=== PATIENT | female | born 1945 | race Caucasian/White ===

== ENCOUNTER 2017-12-19 07:04 | Emergency (ER) | payer MEDICARE, MEDICAID ==
[~2017-12-19] VITALS: Ht 152.4 cm; Wt 68.0 kg
[~2017-12-19 07:04] MED LIST: CARAFATE1 GM PO; GARLIC OIL1 EAC1; HYDROCODON-ACE1 EAC7; HYDROCODONE-AP1 EAC6 PO; LEVAQUIN 500 M500 M2 PO; LEVAQUIN 500 M500 M4 PO; LEVAQUIN 500 M500 MG PO; LIPITOR; LIPITOR 20 MG T20 M1 PO; MIRALAX17 GM PO; NORCO 5-325 TA1 EACH PO; PROTONIX40 M1 PO; TRAMADOL 50 MG50 MG PO; ULTRACET; VENTOLIN HFA 1818 GM INH
[2017-12-19] MEDS ORDERED: ELIQUIS5 MG PO (07:14)
[2017-12-19 07:29] LABS: ABSOLUTE BASOPHILS 0.1 thou/uL (0.0-0.2); ABSOLUTE EOSINOPHILS 0.3 thou/uL (0.0-0.7); ABSOLUTE LYMPHOCYTES 1.2 thou/uL (0.8-5.3); ABSOLUTE MONOCYTES 0.7 thou/uL (0.0-1.2); ABSOLUTE NEUTROPHILS 5.7 thou/uL (1.6-8.1); HEMOGLOBIN 13.3 gm/dL (12.0-15.0); NUCLEATED RBCS 0 /100WBC; PLATELET COUNT* 273 thou/uL (150-400); RDW-CV 15.4 % (10.5-14.5); WBC 8.1 thou/uL (4.0-11.0)
[2017-12-19 07:31] LABS: BASOPHILS 1.1 %; EOSINOPHILS 3.9 %; HEMATOCRIT 39.8 % (37.0-47.0); LYMPHOCYTES 15.3 %; MCH 30.2 pg (26.0-34.0); MCHC 33.4 g/dL (28.0-37.0); MCV 90.3 fL (80.0-100.0); MONOCYTES 8.9 %; MPV 8.6 fl. (7.2-11.1); POLYS 70.8 %
[2017-12-19 07:36] LABS: ANION GAP 7 mmol/L (7-16); BUN 11 mg/dL (7-18); CALCIUM 8.7 mg/dL (8.5-10.1); CHLORIDE 104 mmol/L (98-107); CO2 28 mmol/L (21-32); CREATININE 0.7 mg/dL (0.6-1.3); GLUCOSE 95 mg/dL (70-99); POTASSIUM 3.8 mmol/L (3.5-5.1); SODIUM 139 mmol/L (136-145)
[2017-12-19 07:43] LABS: ALBUMIN 3.4 g/dL (3.4-5.0); ALKALINE PHOSPHATASE 102 U/L (46-116); SGOT 13 U/L (15-37); SGPT 20 U/L (30-65); TOTAL BILIRUBIN 0.4 mg/dL (<0.1-1.0); TOTAL PROTEIN 7.4 g/dL (6.4-8.2); TROPONIN-I LEVEL <0.06 ng/mL (<0.06)
[2017-12-19 08:09] LABS: NT-PRO BRAIN NAT PEPTIDE 178 pg/mL (<300)
[2017-12-19] MEDS ORDERED: ZPAK PO (10:46)
[2017-12-19] MEDS ORDERED: PREDNISONE50 MG PO (10:46)
[2017-12-19 10:59] VITALS: BP 134/67
--- NOTE | 2017-12-19 11:15 | EKG ---
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: Alessandro SCHMIDT : 1945 Requested By: Zander Mendoza Order Number: [id number] MD: Wallace Man Measurements Intervals [place] Rate: 92 P: 61 [place]: 138 QRS: -36 QRSD: 84 T: 62 QT: 369 QTc: 457 Interpretive Statements Sinus rhythm RSR' in V1 or V2, probably normal variant Possible inferior infarct, old Compared to ECG 12/02/2016 18:47:18 RSR' in V1 or V2 now present Myocardial infarct finding now present Electronically Signed On 12-19-2017 11:15:39 CDT by Wallace Man [email or web address] <ELECTRONICALLY SIGNED> By: Wallace Man MD, [facility] 12/19/17 [phone] [id number] Wallace Man MD, [facility] /EPI
== END 2017-12-19 10:59 | disposition home or self-care (01) ==
LOC: M.ERS 07:04
PROVIDERS: Emergency Medicine Emergency Medical Services
DX: J44.1 Chronic obstructive pulmonary disease with (acute) exacerbation (principal); E78.00 Pure hypercholesterolemia, unspecified; G89.29 Other chronic pain; F17.210 Nicotine dependence, cigarettes, uncomplicated; Z88.0 Allergy status to penicillin; Z90.711 Acquired absence of uterus with remaining cervical stump; Z90.49 Acquired absence of other specified parts of digestive tract

== ENCOUNTER 2018-02-06 10:02 | Inpatient (IN) | payer MEDICARE, MEDICAID ==
[~2018-02-06] VITALS: Ht 152.4 cm; Wt 67.1 kg
[~2018-02-06 10:02] MED LIST changes: +ELIQUIS5 MG PO; +PREDNISONE50 MG PO; +ZPAK PO
[2018-02-06 10:07] VITALS: BP 149/77
[2018-02-06] MEDS ORDERED: ACCUNEB SO1.25 MG/1 INH (10:09)
[2018-02-06 10:39] LABS: HEMATOCRIT 39.9 % (37.0-47.0); HEMOGLOBIN 13.2 gm/dL (12.0-15.0); MCH 29.9 pg (26.0-34.0); MCHC 33.1 g/dL (28.0-37.0); MCV 90.1 fL (80.0-100.0); MPV 8.9 fl. (7.2-11.1); NUCLEATED RBCS 0 /100WBC; PLATELET COUNT* 249 thou/uL (150-400); RBC 4.43 mil/uL (4.20-5.00); RDW-CV 14.8 % (10.5-14.5); WBC 15.2 thou/uL (4.0-11.0)
[2018-02-06 10:47] LABS: ANION GAP 10 mmol/L (7-16); BUN 14 mg/dL (7-18); CALCIUM 8.7 mg/dL (8.5-10.1); CHLORIDE 103 mmol/L (98-107); CO2 24 mmol/L (21-32); CREATININE 0.8 mg/dL (0.6-1.3); GLUCOSE 112 mg/dL (70-99); POTASSIUM 3.6 mmol/L (3.5-5.1); SODIUM 137 mmol/L (136-145)
[2018-02-06 10:49] LABS: APTT 33.8 Seconds (25.0-31.3); INR 1.1; PROTIME 10.9 Seconds (9.20-11.50)
[2018-02-06 10:58] LABS: ALBUMIN 3.3 g/dL (3.4-5.0); ALKALINE PHOSPHATASE 85 U/L (46-116); NT-PRO BRAIN NAT PEPTIDE 217 pg/mL (<300); SGOT 11 U/L (15-37); SGPT 13 U/L (30-65); TOTAL BILIRUBIN 0.8 mg/dL (<0.1-1.0); TOTAL PROTEIN 7.4 g/dL (6.4-8.2); TROPONIN-I LEVEL <0.06 ng/mL (<0.06)
[2018-02-06 11:05] LABS: ABSOLUTE LYMPHOCYTES 1.8 thou/uL (0.8-5.3); ABSOLUTE MONOCYTES 0.8 thou/uL (0.0-1.2); ABSOLUTE NEUTROPHILS 12.6 thou/uL (1.6-8.1); METAMYELOCYTES 1 %; PLATELET ESTIMATE ADEQUATE
[2018-02-06 12:48] VITALS: BP 113/70
[2018-02-06 13:12] LABS: INFLUENZA A ANTIGEN None Detected (None Detect); INFLUENZA B ANTIGEN None Detected (None Detect)
--- NOTE | 2018-02-06 14:37 | EKG ---
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: CEFERINO : 1945 Requested By: Zander Mendoza Order Number: [id number] MD: Florian Tan Measurements Intervals [place] Rate: 98 P: 78 [place]: 134 QRS: -55 QRSD: 83 T: 59 QT: 351 QTc: 449 Interpretive Statements Sinus rhythm Abnormal R-wave progression, late transition Inferior infarct, old Compared to ECG 12/19/2017 07:09:47 No significant changes Electronically Signed On 02-06-2018 14:36:53 CDT by Florian Tan [email or web address] <ELECTRONICALLY SIGNED> By: Florian Tan MD, [facility] 02/06/18 1436 1013 [id number] Florian Tan MD, [facility] /EPI
[2018-02-06 15:20] VITALS: BP 103/59
--- NOTE | 2018-02-06 17:17 | NUR ---
VSS, ASSUMED CARE OF FROM ER, ASSESSMENT PERFORMED AND CHARTED, FALL PRECAUTIONS IN PLACE AND CALL LIGHT IN REACH, PT IS A&O4 ON 2L NC AND UP AD WAQAR, STATES SHE HAS BACK PAIN RATES PAIN 8 OUT OF 10, PT IS TRACING SR ON THE MONITOR, PT GOAL IS TO IMPROVE BREATHING, WILL FOLLOW WITH PLAN OF CARE.
[2018-02-06 19:30] VITALS: BP 98/57
[2018-02-07] VITALS: BP 121/76
[2018-02-07 04:00] VITALS: BP 115/64
--- NOTE | 2018-02-07 04:31 | NUR ---
CARE ASSUMMED AT 2330. PT HAS RESTED QUIETLY THIS SHIFT. RESP REG AND UNALBORED SKIN W/D [place] DISTRESS NOTED.02 2L BNC INTACT. TELEMETRY PACK INTACT WITH ALATMS SET. VSS AND NO ACUTE CHANGES DURIGN SHIFT WILL CONTINUE TO MONITOR
[2018-02-07 05:48] LABS: HEMATOCRIT 36.6 % (37.0-47.0); HEMOGLOBIN 12.1 gm/dL (12.0-15.0); MCH 30.3 pg (26.0-34.0); MCV 91.9 fL (80.0-100.0); RBC 3.98 mil/uL (4.20-5.00); WBC 14.7 thou/uL (4.0-11.0)
[2018-02-07 06:10] LABS: CALCIUM 8.7 mg/dL (8.5-10.1); CREATININE 0.7 mg/dL (0.6-1.3); MAGNESIUM 2.2 mg/dL (1.8-2.4); POTASSIUM 4.5 mmol/L (3.5-5.1)
[2018-02-07 07:58] VITALS: BP 119/62
[2018-02-07 08:00] VITALS: BP 119/62
[2018-02-07 12:55] VITALS: BP 123/60
--- NOTE | 2018-02-07 15:43 | NUR ---
Pt is A&O. Resides at home with her children and grandchildren. Independent with ADLs, continues to cook, clean and drive. Pt has home o2 that she uses PRN through [employer]. No other DME. No hx of HH or SNF. Supportive family. Goal is to return home, no needs anticipated. Following.
--- NOTE | 2018-02-07 18:20 | NUR ---
PATINET RESTING IN BED. UP AD WAQAR. 2L PER NASAL CANULA. MED SURG STATUS. AOX4. PATINET PRORESSING TOWARDS GOALS AND HOURLY ROUNDING PERFORMED FOR PATIENT SAFETY. VITAL SIGNS STABLE. R HAND AND L AC IV PRESENT.
[2018-02-07 19:05] VITALS: BP 108/47
[2018-02-08] VITALS: BP 124/70
--- NOTE | 2018-02-08 04:32 | NUR ---
PT AAOX4 RESP REG AND UNLABORED SKIN W/D NO ACUTE DISTRESS NOTED. PT STATED THAT SHE WAS BREATHING BETTER. O2 2L BNC INTACT. VSS AND NO ACUTE CHANGES DURIGN SHIFT, WILL CONTINUE TO MONITOR
[2018-02-08 07:44] VITALS: BP 132/75
--- NOTE | 2018-02-08 10:00 | NUR ---
ASSUMED CARE OF PATIENT AFTER REC'G REPORT FROM JAQUAN RN. PT IS A & O X4. MED SURG STATUS. VS WNL. O2 SATS: 91% ON 2L/MIN NC, HAS BEEN LAYING DOWN. SATS >92% IN SEMIFOWLER'S POSITION. ASSESSMENT COMPLETE, DOCUMENTED. MEDS PER JUL. PT IS ABLE TO COMMUNICATE NEEDS TO STAFF. STATES HAVING NO PAIN AT TIME OF ASSESSMENT. CALL LIGHT WITHIN REACH. BED LOW IN LOCKED POSITION.
--- NOTE | 2018-02-08 14:20 | NUR ---
CALLED REPORT TO MARJORIE Gupta RN. PT TRANSFERED VIA AND NURSING STAFF TO MED SURG UNIT. PT HAS ALL BELONGINGS IN HER POSSESSION.
--- NOTE | 2018-02-08 15:30 | NUR ---
PATIENT ARRIVED TO UNIT AT 1445. ALERT AND ORIENTED X 4. VITAL SIGNS STABLE ON ROOM AIR. UP AD WAQAR. ORIENTED TO ROOM. CALL LIGHT WITHIN REACH. NURSING WILL CONTINUE TO MONITOR.
[2018-02-08 17:16] VITALS: BP 122/70
--- NOTE | 2018-02-08 17:16 | NUR ---
PATIENT ALERT AND ORIENTED X 4. VITAL SIGNS STABLE ON ROOM AIR. AFEBRILE. UP AD WAQAR IN ROOM. IV PATENT AND SALINE LOCKED. DENIES PAIN AND NAUSEA. HOURLY ROUNDS MAINTAINED SINCE ARRIVING TO UNIT. CALL LIGHT WITHIN REACH. NURSING WILL CONTINUE TO MONITOR.
[2018-02-08 23:30] VITALS: BP 144/79
[2018-02-09 04:04] LABS: HEMATOCRIT 36.2 % (37.0-47.0); HEMOGLOBIN 11.8 gm/dL (12.0-15.0); MCH 30.2 pg (26.0-34.0); MCHC 32.7 g/dL (28.0-37.0); MCV 92.4 fL (80.0-100.0); MPV 8.6 fl. (7.2-11.1); RBC 3.92 mil/uL (4.20-5.00); RDW-CV 14.8 % (10.5-14.5); WBC 15.4 thou/uL (4.0-11.0)
[2018-02-09 04:33] LABS: CREATININE 0.8 mg/dL (0.6-1.3); POTASSIUM 4.2 mmol/L (3.5-5.1)
--- NOTE | 2018-02-09 07:23 | NUR ---
PATIENT SLEPT MOST OF THE NIGHT. IV REMAINS SALINE LOCKED. PATIENT WAS GIVEN PAIN MEDICINE ONCE THIS SHIFT. PATIENT REMAINS ON OXYGEN AT 2L PER NASAL CANNULA. WILL CONTINUE TO MONITOR.
[2018-02-09] MEDS ORDERED: MUCINEX600 MG PO (07:36)
[2018-02-09] MEDS ORDERED: PREDNISONE 10 M10 MG PO (07:36)
[2018-02-09] MEDS ORDERED: LEVAQUIN 750 M750 MG PO (07:36)
[2018-02-09 08:30] VITALS: BP 146/82
[2018-02-09 12:00] VITALS: BP 146/82
[2018-02-09 12:04] VITALS: BP 146/82
[2018-02-09 14:40] VITALS: BP 146/82
--- NOTE | 2018-02-09 14:56 | NUR ---
PATIENT HAS BEEN ALERT AND ORIENTED TODAY, VERY PLEASANT. UP AD WAQAR IN ROOM. NO COMPLAINTS OF PAIN TODAY. VITAL SIGNS HAVE BEEN STABLE ON ROOM AIR. PATIENT IS BEING DISCHARGED TO HOME, DISCHARGE INSTRUCTIONS AND PRESCRIPTIONS GIVEN TO PATIENT, ALL QUESTIONS ANSWERED FOR PATIENT. LEFT VIA WHEEL CHAIR TO HOME.
== END 2018-02-09 14:40 | disposition home or self-care (01) | DRG 871 ==
LOC: M.ERS 10:02 → M.2W 11:21 → M.TBA-ER 11:21 → M.2W 13:43 → M.3W 02-08 14:40
PROVIDERS: Emergency Medicine Emergency Medical Services; ADMIT Internal Medicine
DX: A41.9 Sepsis, unspecified organism (principal); J96.01 Acute respiratory failure with hypoxia; J15.9 Unspecified bacterial pneumonia; J44.1 Chronic obstructive pulmonary disease with (acute) exacerbation; J44.0 Chronic obstructive pulmonary disease with (acute) lower respiratory infection; E78.00 Pure hypercholesterolemia, unspecified; G89.29 Other chronic pain; Z88.0 Allergy status to penicillin; Z87.891 Personal history of nicotine dependence; Z90.711 Acquired absence of uterus with remaining cervical stump; Z90.49 Acquired absence of other specified parts of digestive tract; Z85.118 Personal history of other malignant neoplasm of bronchus and lung; Z79.899 Other long term (current) drug therapy; K21.0 Gastro-esophageal reflux disease with esophagitis; Z90.2 Acquired absence of lung [part of]

== ENCOUNTER → 2018-02-20 | Outpatient (CLI) | payer MEDICARE, MEDICAID ==
[~2018-02-20] MED LIST changes: +ACCUNEB SO1.25 MG/1 INH; +LEVAQUIN 750 M750 MG PO; +MUCINEX600 MG PO; +PREDNISONE 10 M10 MG PO
== END ==
LOC: M.RAD 13:03
DX: J18.9 Pneumonia, unspecified organism (principal); R91.8 Other nonspecific abnormal finding of lung field; E78.00 Pure hypercholesterolemia, unspecified; G89.29 Other chronic pain; F17.210 Nicotine dependence, cigarettes, uncomplicated; Z90.2 Acquired absence of lung [part of]; Z88.0 Allergy status to penicillin

== ENCOUNTER 2018-05-15 17:00 | Emergency (ER) | payer MEDICARE, MEDICAID ==
[~2018-05-15] VITALS: Ht 152.4 cm; Wt 68.0 kg
[2018-05-15] MEDS ORDERED: NORCO 5-325 TA1 EACH PO (17:10)
[2018-05-15 18:06] LABS: ABSOLUTE EOSINOPHILS 0.2 thou/uL (0.0-0.7); ABSOLUTE LYMPHOCYTES 1.3 thou/uL (0.8-5.3); ABSOLUTE MONOCYTES 0.5 thou/uL (0.0-1.2); ABSOLUTE NEUTROPHILS 6.1 thou/uL (1.6-8.1); BASOPHILS 0.2 %; HEMATOCRIT 40.7 % (37.0-47.0); HEMOGLOBIN 13.5 gm/dL (12.0-15.0); LYMPHOCYTES 16.4 %; MCH 30.5 pg (26.0-34.0); MCHC 33.2 g/dL (28.0-37.0); MCV 91.8 fL (80.0-100.0); MPV 8.2 fl. (7.2-11.1); NUCLEATED RBCS 0 /100WBC; PLATELET COUNT* 287 thou/uL (150-400); POLYS 74.4 %; RBC 4.43 mil/uL (4.20-5.00); RDW-CV 14.8 % (10.5-14.5); WBC 8.2 thou/uL (4.0-11.0)
[2018-05-15 18:14] LABS: CREATININE 0.8 mg/dL (0.6-1.3); POTASSIUM 3.8 mmol/L (3.5-5.1)
[2018-05-15 18:19] LABS: ALBUMIN 3.6 g/dL (3.4-5.0); TOTAL BILIRUBIN 0.2 mg/dL (<0.1-1.0); TOTAL PROTEIN 7.2 g/dL (6.4-8.2)
[2018-05-15 19:14] VITALS: BP 149/83
== END 2018-05-15 19:15 | disposition home or self-care (01) ==
LOC: M.ERS 17:00
PROVIDERS: Nurse Practitioner Family
DX: M25.561 Pain in right knee (principal); F17.210 Nicotine dependence, cigarettes, uncomplicated; E78.00 Pure hypercholesterolemia, unspecified; G89.29 Other chronic pain; Z90.711 Acquired absence of uterus with remaining cervical stump; Z90.49 Acquired absence of other specified parts of digestive tract; Z88.0 Allergy status to penicillin

== ENCOUNTER → 2018-05-30 | Outpatient (CLI) | payer MEDICARE, MEDICAID | LOC: M.MRI 14:04 | DX: S83.222A Peripheral tear of medial meniscus, current injury, left knee, initial encounter (principal); S83.242A Other tear of medial meniscus, current injury, left knee, initial encounter; M25.462 Effusion, left knee; X58.XXXA Exposure to other specified factors, initial encounter; Y93.89 Activity, other specified; Y92.89 Other specified places as the place of occurrence of the external cause; Y99.8 Other external cause status ==

== ENCOUNTER → 2018-07-03 | Day surgery (SDC) | payer MEDICARE, MEDICAID ==
[~2018-07-03] MED LIST changes: +PRILOSEC 20 MG20 MG PO
--- NOTE | ~2018-07-03 | OP ---
[address] [address] OPERATIVE REPORT Name: VIMAEVE FAWAD Room: [facility].#: [id number] Admission: 07/03/18 Attend Phys: Florian Bird DO Discharge: Date of : 47 Report #: [id number] THIS REPORT FOR: //name// CC: Florian Diaz DATE OF SERVICE: 07/03/2018 PREOPERATIVE DIAGNOSIS: Left knee medial meniscus tear. POSTOPERATIVE DIAGNOSES: 1. Complex tear posterior horn medial meniscus. 2. 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 PROCEDURE: 1. Left knee arthroscopy. 2. Partial medial meniscectomy. SURGEON: Florian Bird MD COUNTY DIRECTOR: Topher Mobley DO. ESTIMATED BLOOD LOSS: 5 mL. DRAINS: None. SPECIMEN REMOVED: None. ANESTHESIA: General. ANTIBIOTICS: Ancef 2 grams IV preoperatively. CONDITION OF PATIENT: Stable to PACU. INDICATIONS: The patient is a pleasant 72-year-old female, seen in my clinic regarding left knee pain she has had for quite some time. She unfortunately failed conservative treatment. MRI was obtained demonstrating a tear of the medial meniscus. Based on her fairly well preserved joint spaces on x-ray, I have discussed potential benefit of left knee arthroscopy. I discussed procedure, risks, benefits, complications, and indications in detail with her. Risks discussed include but not limited to infection, neurovascular injury, continued worsening pain, repeat tear, no improvement in symptoms, need for further surgery, DVT, PE and anesthesia complications. She did express understanding and wished to proceed with surgery. DESCRIPTION OF PROCEDURE: After consent was obtained, [place] [address] OPERATIVE REPORT Name: MAEVE NESBITT FAWAD Room: [facility]..#: [id number] Admission: 07/03/18 Attend Phys: Florian Bird DO Discharge: Date of : 47 Report #: [id number] the operative suite and placed in the supine position on the operating room table. She was given benefit of general anesthesia. A well-padded tourniquet was placed over left upper thigh. Left leg was placed in well-padded leg milner and sterilely prepped and draped in the usual fashion. Preop timeout was obtained to confirm the correct patient, procedure and operative site. Surgery began with standard anterolateral portal incision and arthroscope was introduced. Diagnostic arthroscopy was performed noting the above findings. She did have global grade 1-2 chondromalacia of the joint; however, fairly well preserved cartilage for her age. An anterior medial portal was established using spinal needle technique. Upon evaluation of the medial meniscus she did have a complex type tear with multiple flaps and incarcerated undersurface flap as well. The ACL and lateral compartment were without significant pathology. At this time, a combination of arthroscopic baskets and shaver was used to perform partial medial meniscectomy, taking the tear back to stable edges. Once this was performed, the meniscus was again probed and there were no unstable lesions noted. This did clean up fairly nicely. The final pictures were taken. Shaver was used to debride the joint slightly and the joint was then thoroughly irrigated with sterile saline. All fluid was then drained. Instruments were removed. Incisions were closed with 4-0 nylon in simple interrupted fashion. Mixture of 1% lidocaine and 40 mg of Kenalog was injected into the joint. Sterile bandage was applied. She did tolerate the procedure well without complications. She was taken to recovery room in stable condition. All needle and sponge counts were correct x 2 at the end of the procedure. By: [id number] Bird DO /kevin
[2018-07-03 09:17] LABS: HEMOGLOBIN 14.7 gm/dL (12.0-15.0); MCH 31.6 pg (26.0-34.0); MCHC 34.2 g/dL (28.0-37.0); MCV 92.5 fL (80.0-100.0); MPV 8.4 fl. (7.2-11.1); RBC 4.65 mil/uL (4.20-5.00); RDW-CV 14.2 % (10.5-14.5); WBC 8.3 thou/uL (4.0-11.0)
[2018-07-03 09:30] LABS: CALCIUM 9.4 mg/dL (8.5-10.1); CREATININE 0.8 mg/dL (0.6-1.3); POTASSIUM 4.3 mmol/L (3.5-5.1)
== END | disposition home or self-care (01) ==
LOC: M.SUR 08:55
PROVIDERS: Orthopaedic Surgery
DX: S83.232A Complex tear of medial meniscus, current injury, left knee, initial encounter (principal); M94.262 Chondromalacia, left knee; J44.1 Chronic obstructive pulmonary disease with (acute) exacerbation; Z88.0 Allergy status to penicillin; Z79.899 Other long term (current) drug therapy; X58.XXXA Exposure to other specified factors, initial encounter; Y93.89 Activity, other specified; Y92.89 Other specified places as the place of occurrence of the external cause; Y99.8 Other external cause status

== ENCOUNTER 2018-09-13 09:51 | Inpatient (IN) | payer MEDICARE, MEDICAID ==
[~2018-09-13] VITALS: Ht 152.4 cm; Wt 66.7 kg
[~2018-09-13 09:51] MED LIST changes: +NORCO 10-325 T1 EACH PO
[2018-09-13 10:09] VITALS: BP 141/91
[2018-09-13 10:56] LABS: ABSOLUTE BASOPHILS 0.1 thou/uL (0.0-0.2); ABSOLUTE EOSINOPHILS 0.2 thou/uL (0.0-0.7); ABSOLUTE LYMPHOCYTES 1.4 thou/uL (0.8-5.3); ABSOLUTE MONOCYTES 0.5 thou/uL (0.0-1.2); ABSOLUTE NEUTROPHILS 5.8 thou/uL (1.6-8.1); BASOPHILS 0.8 %; EOSINOPHILS 2.6 %; HEMATOCRIT 41.5 % (37.0-47.0); LYMPHOCYTES 17.2 %; MCH 30.7 pg (26.0-34.0); MCHC 33.8 g/dL (28.0-37.0); MCV 90.7 fL (80.0-100.0); MONOCYTES 6.4 %; MPV 8.5 fl. (7.2-11.1); NUCLEATED RBCS 0 /100WBC; PLATELET COUNT* 324 thou/uL (150-400); RBC 4.58 mil/uL (4.20-5.00); RDW-CV 14.8 % (10.5-14.5)
[2018-09-13 11:03] LABS: APTT 32.8 Seconds (25.0-31.3); INR 1.1; PROTIME 10.8 Seconds (9.20-11.50)
[2018-09-13 11:22] LABS: ALBUMIN 3.6 g/dL (3.4-5.0); ALKALINE PHOSPHATASE 92 U/L (46-116); ANION GAP 11 mmol/L (7-16); BUN 10 mg/dL (7-18); CALCIUM 9.2 mg/dL (8.5-10.1); CHLORIDE 107 mmol/L (98-107); CO2 25 mmol/L (21-32); CREATININE 0.7 mg/dL (0.6-1.3); GLUCOSE 104 mg/dL (70-99); LIPASE 143 U/L (73-393); MAGNESIUM 1.9 mg/dL (1.8-2.4); NT-PRO BRAIN NAT PEPTIDE 198 pg/mL (<300); POTASSIUM 3.9 mmol/L (3.5-5.1); SGOT 14 U/L (15-37); SGPT 19 U/L (30-65); SODIUM 143 mmol/L (136-145); TOTAL BILIRUBIN 0.4 mg/dL (<0.1-1.0); TOTAL PROTEIN 7.4 g/dL (6.4-8.2); TROPONIN-I LEVEL <0.06 ng/mL (<0.06)
[2018-09-13 12:45] VITALS: BP 123/73
[2018-09-13 12:55] VITALS: BP 136/80
--- NOTE | 2018-09-13 16:09 | EKG ---
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: : 1945 Requested By: Aniceto Zapata Order Number: [id number] MD: Florian Tan Measurements Intervals [place] Rate: 96 P: 81 [place]: 138 QRS: -54 QRSD: 85 T: 65 QT: 365 QTc: 462 Interpretive Statements Sinus rhythm Abnormal R-wave progression, late transition Probable inferior infarct, old Compared to ECG 02/06/2018 10:13:55 No significant changes Electronically Signed On 09-13-2018 16:09:28 CDT by Florian Tan [email or web address] <ELECTRONICALLY SIGNED> By: Florian Tan MD, FACC 09/13/18 1609 1049 1049 Florian Tan MD, [facility] /EPI
[2018-09-13 16:34] LABS: INFLUENZA A ANTIGEN None Detected (None Detect); INFLUENZA B ANTIGEN None Detected (None Detect)
--- NOTE | 2018-09-13 17:21 | NUR ---
PATIENT ARRIVED FROM ER THIS AFTERNOON. PATIENT SETTLED TO ROOM AND HISTORY, ASSESSMENT AND VITALS COMPLETED AND DOCUMENTED. PATIENT DENIES ANY PAIN AT THIS TIME. PATIENT IS SHORT OF AIR WITH EXERTION. LUNG SOUNDS ARE WHEEZY. PATIENT DENIES ANY NEEDS AT THIS TIME. CALL LIGHT WITHIN REACH. WILL CONTINUE TO MONITOR.
[2018-09-13 18:00] VITALS: BP 118/73
[2018-09-13 21:00] VITALS: BP 104/56
[2018-09-14] VITALS: BP 106/61
[2018-09-14 04:00] VITALS: BP 114/68
--- NOTE | 2018-09-14 06:41 | NUR ---
PT ALERT AND ORIENTED. HOME MED MELATONIN ORDERED AT HS PER PT REQUEST. PT WAS UP MOST OF SHIFT. DR PITTS ORDERED TELE STATUS FOR PT. SINUS RHYTHM ON THE MONITOR. MEDS GIVEN PER EMAR. PAIN MEDS GIVEN THIS SHIFT. RELIEF NOTED. CALL LIGHT WITHIN REACH. HOURLY ROUNDINGS MADE. WILL CONTINUE TO MONITOR.
[2018-09-14 08:20] VITALS: BP 111/62
[2018-09-14 11:29] VITALS: BP 105/62
--- NOTE | 2018-09-14 14:40 | NUR ---
SW met with pt and pt son to complete initial assessment, introduce self, and SW role. Pt alert, oriented, pleasant. Pt lives at home with family support. Pt continues to have prn oxygen at home through [facility]. Pt does not have any other DME. Pt does not have any hx of HH or SNF. Pt did not express any dc needs at this time. SW to continue to follow to assist with safe dc planning.
[2018-09-14] MEDS ORDERED: CENTRUM SILVER1 EAC4 PO (15:00)
[2018-09-14] MEDS ORDERED: MELATONIN5 M1 PO (15:01)
[2018-09-14 16:06] VITALS: BP 104/55
--- NOTE | 2018-09-14 16:37 | NUR ---
PATIENT HAS BEEN A/O X 4 THIS SHIFT. COFFEE SAMPLER IN PLACE THIS AM, TRACING NSR/ST. COFFEE SAMPLER DC'D THIS AFTERNOON. NEW IV STARTED TO RIGHT FOREARM, RECEIVED IV ANTIBIOTICS AND STEROIDS. UP AD WAQAR IN ROOM, ENCOURAGED TO WEAR O2 WHEN AMBULATING TO BATHROOM. REMAINS ON O2 AT 2L/NC, CONTINUES ON RT TREATMENTS. SEEN BY OT/PT THIS SHIFT. PATIENT TO TRANSFER TO ROOM 109. REPORT GIVEN TO WENDY AVITIA WHO WILL BE ASSUMING CARE OF PATIENT. HOURLY ROUNDING COMPLETED. CALL LIGHT WITHIN REACH. WILL CONTINUE WITH PLAN OF CARE.
--- NOTE | 2018-09-14 18:27 | NUR ---
TOOK OVER CARE OF PT ABOUT 1700. PT STABLE. AGREE WITH PREVIOUS ASSESSMENT. UP AD WAQAR. PAIN CONTROLLED WITH NORCO. CALL LIGHT WITHIN REACH WILL CONTINUE TO MONITOR.
[2018-09-14 22:10] VITALS: BP 92/55
--- NOTE | 2018-09-15 05:57 | NUR ---
PT REMAINED ALERT AND ORIENTED. VITALS, SpO2 STABLE. BREATING TREATMENT PROVIDED BY RT. PT ON 2L OF OXYGEN BY NC. MEDS GIVEN ORDERED. SLEEPING PILL PROVIDED PER PT REQUEST. BACK PAIN CONTROLLED WITH HYDROCODONE. HOURLY ROUNDING COMPLETED. WILL CONTINUE TO MONITOR.
[2018-09-15 08:00] VITALS: BP 124/73
[2018-09-15 17:06] VITALS: BP 125/69
--- NOTE | 2018-09-15 18:59 | NUR ---
AM ASSESSMENT AND VITAL SIGNS COMPLETED DOCUMENTED. PT CONTINUES ON IV STEROIDS, ABX AND AEROSOL [place]. PRN HYDROCODONE GIVEN X3 FOR CHRONIC BACK PAIN. FALL PRECAUTIONS AND HOURLY ROUNDING CONTINUE.
[2018-09-15 20:49] VITALS: BP 115/65
--- NOTE | 2018-09-16 05:00 | NUR ---
PT REMAINED ALERT AND ORIENTED. VITALS, SpO2 STABLE. PT IS ON 2L OF OXYGEN BY MO. MEDS GIVEN ORDERED. CHRONIC BACK PAIN MANAGED WITH HYDROCODONE. NEW IV ANTIBIOTICS ORDERED FOR POSITIVE RESULT ON SPUTUM CULTURE. HOURLY ROUDING COMPLETED. WILL CONTINUE TO MONITOR.
[2018-09-16 08:00] VITALS: BP 125/71
[2018-09-16 16:33] VITALS: BP 110/59
--- NOTE | 2018-09-16 17:01 | NUR ---
PATIENT ALERT AND ORIENTED X 4. VITAL SIGNS STABLE ON 2L O2 NASAL CANULA. UP AD WAQAR IN ROOM. IV PATENT AND SALINE LOCKED. PAIN BEING MANAGED WITH PO MEDICATION. DENIES NAUSEA AT THIS TIME. HOURLY ROUNDS MAINTAINED THROUGHOUT THE SHIFT. CALL LIGHT WITHIN REACH. NURSING WILL CONTINUE TO MONITOR.
[2018-09-16 21:00] VITALS: BP 153/82
--- NOTE | 2018-09-17 07:39 | NUR ---
PATIENT HAS SLEPT WELL DURING THE NIGHT. VSS ON 2L 02 VIA NASAL CANNULA. MEDICATIONS GIVEN ORDERED AND CHARTED. ASSESSMENT CHARTED. IV IN RIGHT FOREARM-SL. PATIENT INSTRUCTED TO USE CALL LIGHT WHEN NEEDING ASSISTANCE. HOURLY ROUNDS MADE. WILL CONTINUE WITH PLAN OF CARE AND NURSING TO MONITOR.
[2018-09-17 08:30] VITALS: BP 135/84
[2018-09-17 15:59] VITALS: BP 134/71
--- NOTE | 2018-09-17 17:40 | CON ---
[address] [address] CONSULTATION Name: MAEVE NESBITT Room: [address] IN M.R.#: [id number] Admission: 09/13/18 Attend Phys: Nieves Guzman MD Discharge: Date of : 47 Report #: [id number] THIS REPORT FOR: //name// CC: Allen Guzman DATE OF SERVICE: 09/16/2018 INFECTIOUS DISEASE CONSULTATION: REASON FOR CONSULTATION: I was asked to evaluate concerning lower respiratory tract infection. HISTORY OF PRESENT ILLNESS: The patient is a 73-year-old with underlying history of COPD, lung cancer, status post left lower lobe resection about a year ago who presents with a 1-week history of increased progressive cough, sputum production and shortness of breath. Not typically on oxygen at home nor on long-term steroids. She does use an inhaler. She has had no travel. Lives with her extended family with no other ill persons. Has a pet dog. Had lower respiratory tract infection several months ago. No dental work. No known aspiration risks. No HIV risks. Since hospitalization, she has been placed on corticosteroids, azithromycin and ceftriaxone. No fever, chills or sweats. She is on 2 liters of oxygen per nasal cannula. She has intermittent cough with production of yellow sputum and no hemoptysis. No pleuritic chest pain. Has mild dyspnea on exertion. No PND or orthopnea. No sinus drainage. Appetite has been reasonable. REVIEW OF SYSTEMS: A 10-point review of systems was negative other than what has been described above. ALLERGIES: Reports PENICILLIN, but reaction is indeterminate in that she was young at that time and she feels that she probably had contact dermatitis. She does tolerate cephalosporins. MEDICATIONS: As noted on her MAR, which were reviewed including azithromycin and ceftriaxone. PAST MEDICAL HISTORY: Partial hysterectomy, appendectomy, hyperlipidemia, chronic low back pain, bladder suspension surgery, lung cancer with left lower lobectomy, chronic pain syndrome. FAMILY HISTORY: Noncontributory. SOCIAL HISTORY: Past smoker, no significant alcohol intake[place] [address] CONSULTATION Name: MAEVE NESBITT Room: [address] IN [facility]#: [id number] Admission: 09/13/18 Attend Phys: Nieves Guzman MD Discharge: Date of : 47 Report #: [id number] PHYSICAL EXAMINATION: VITAL SIGNS: She is afebrile and hemodynamically stable. She was ambulatory. She is with oxygen per nasal cannula. SKIN: Without rash or decubitus. No palpable adenopathy. HEENT: Eyes, without scleral icterus. Mouth without mucositis. NECK: Supple, with no thyromegaly or mass. LUNGS: Decreased breath sounds bilaterally with no consolidation. She had scattered wheezes and rhonchi, mostly in the upper airway. HEART: Regular, without murmur, gallop or rub. ABDOMEN: Soft and nontender with no hepatosplenomegaly or mass appreciated. No CVA tenderness or back tenderness noted. GENITAL AND RECTAL: Not performed. EXTREMITIES: Without clubbing, cyanosis or edema. NEUROLOGIC: Mood was normal. Affect normal. Mental status normal. Strength in her upper and lower extremities was normal with normal sensation to touch and cranial nerves were unremarkable. LABORATORY STUDIES: Sputum culture shows normal dorothy. Blood cultures are negative. Influenza antigen negative. Creatinine 0.7. Liver function test normal. Hemoglobin 14, WBC 8, platelet count 324,000. Chest x-ray showed chronic left lower lobe changes with no significant change from 2018. IMPRESSION: 1. A 73-year-old with underlying chronic obstructive pulmonary disease with exacerbation of such and bronchitis. 2. Underlying history of lung cancer, status post left lower lobectomy about a year ago, so far no evidence of disease. RECOMMENDATIONS: We will continue her current antibiotics. Check Strep pneumo and Legionella antigen as well as PCR for viral respiratory panel. Transition to azithromycin and cefdinir at the time of discharge. We will begin steroid taper as an outpatient. <ELECTRONICALLY SIGNED> By: Jose Alejandro Nuñez MD 09/17/18 1740 1636 [id number] Nuñez MD /nt
--- NOTE | 2018-09-17 18:21 | NUR ---
PATIENT ALERT AND ORIENTED X 4. VITAL SIGNS STABLE ON 2L O2 NASAL CANULA. UP INDEPENDENTLY IN ROOM. IV PATENT AND SALINE LOCKED. ANTIBIOTICS GIVEN PER JUL. PAIN BEING MANAGED WITH PO MEDICATION. DENIES NAUSEA AT THIS TIME. HOURLY ROUNDS MAINTAINED THROUGHOUT THE SHIFT. CALL LIGHT WITHIN REACH. NURSING WILL CONTINUE TO MONITOR.
--- NOTE | 2018-09-18 06:10 | NUR ---
PATIENT HAS SLEPT WELL THROUGHOUT THE NIGHT. VSS ON 2L 02 VIA NASAL CANNULA. MEDICATIONS GIVEN ORDERED AND CHARTED. PATIENT IS UP AD-WAQAR AND STEADY. IV IN RIGHT FOREARM-SL. PATIENT INSTRUCTED TO USE CALL LIGHT WHEN NEEDING ASSISTANCE. HOURLY ROUNDS MADE. WILL CONTINUE WITH PLAN OF CARE AND NURSING TO MONITOR.
[2018-09-18 08:20] VITALS: BP 115/74
[2018-09-18] MEDS ORDERED: PREDNISONE 10 M10 MG PO (10:43)
[2018-09-18] MEDS ORDERED: MIRALAX17 GM PO (11:17)
[2018-09-18 11:18] VITALS: BP 115/74
[2018-09-18 16:00] VITALS: BP 119/70
--- NOTE | 2018-09-18 16:42 | NUR ---
PATIENT OK TO DISCHARGE HOME PER DR. ELLIOTT BUT PER DR. LENNON NEEDED TO STAY ANOTHER DAY. REMAINS ON IV ABX, INFUSED ORDERED. PRN VICODIN FOR PAIN X 2 THIS SHIFT. 02 2L NC REMAINS IN PLACE.
[2018-09-18 20:45] VITALS: BP 124/73
--- NOTE | 2018-09-19 05:38 | NUR ---
PATIENT HAS RESTED WELL THROUGHOUT THE NIGHT. VSS ON 2L 02 VIA NASAL CANNULA. MEDICATIONS GIVEN ORDERED AND CHARTED. IV IN RIGHT FOREARM-SL. PATIENT INSTRUCTED TO USE CALL LIGHT WHEN NEEDING ASSISTANCE. HOURLY ROUNDS MADE. WILL CONTINUE WITH PLAN OF CARE AND NURSING TO MONITOR.
[2018-09-19 09:40] VITALS: BP 139/73
[2018-09-19] MEDS ORDERED: CEFUROXIME500 MG PO (13:48)
--- NOTE | 2018-09-19 14:16 | NUR ---
DISCHARGE DISCUSSED WITH PT. PT GIVEN SCRIPTS AND DISCHARGE PAPERS. PRN FOR BACK PAIN GIVEN WITH FAIR EFFECT. PT AMBULATES TO BATHROOM AND REPORTS VOIDING WELL.PT IS ALERT AND ORIENTATED AND CALLS FOR ASSIST NEEDS. PT'S DAUGHTER TO COME TO TAKE PT HOME.PT REMAINS ALERT AND ORIENTATED AND PLESANT.PT REMAINS ON O2 AT 2L PER NC. PT O2 SAT ON ROOM AIR IS 90%.
[2018-09-21 17:11] LABS: ADENOVIRUS Negative (Negative); INFLUENZA A Negative (Negative); INFLUENZA B Negative (Negative); METAPNEUMOVIRUS Negative (Negative); PARAINFLUENZA 1 Negative (Negative); PARAINFLUENZA 2 Negative (Negative); PARAINFLUENZA 3 Negative (Negative); RHINOVIRUS Negative (Negative); RSV A Negative (Negative); RSV B Negative (Negative)
== END 2018-09-19 14:28 | disposition home or self-care (01) | DRG 177 ==
LOC: M.ERS 09:51 → M.3W 11:53 → M.TBA-ER 11:53 → M.3W 13:20 → M.ORTHSURG 09-14 16:52
PROVIDERS: Family Medicine; Specialist; ADMIT Internal Medicine
DX: J15.6 Pneumonia due to other Gram-negative bacteria (principal); J96.21 Acute and chronic respiratory failure with hypoxia; J44.0 Chronic obstructive pulmonary disease with (acute) lower respiratory infection; J44.1 Chronic obstructive pulmonary disease with (acute) exacerbation; E78.00 Pure hypercholesterolemia, unspecified; G89.29 Other chronic pain; Z90.710 Acquired absence of both cervix and uterus; Z90.49 Acquired absence of other specified parts of digestive tract; Z86.711 Personal history of pulmonary embolism; Z87.891 Personal history of nicotine dependence; Z79.1 Long term (current) use of non-steroidal anti-inflammatories (NSAID); Z88.0 Allergy status to penicillin; Z79.899 Other long term (current) drug therapy; Z79.51 Long term (current) use of inhaled steroids; Z85.118 Personal history of other malignant neoplasm of bronchus and lung

== ENCOUNTER 2019-09-01 23:56 | Inpatient (IN) | payer MEDICARE, MEDICAID ==
[~2019-09-01] VITALS: Ht 152.4 cm; Wt 71.9 kg
[~2019-09-01 23:56] MED LIST changes: +CEFUROXIME500 MG PO; +CENTRUM SILVER1 EAC4 PO; +MELATONIN5 M1 PO; -PRILOSEC 20 MG20 MG PO; +PRILOSEC OTC20 MG PO
[2019-09-02] VITALS (7 sets, daily range): BP systolic 117–188; BP diastolic 56–99
[2019-09-02 00:31] LABS: ABSOLUTE BASOPHILS 0.1 thou/uL (0.0-0.2); ABSOLUTE EOSINOPHILS 0.7 thou/uL (0.0-0.7); ABSOLUTE LYMPHOCYTES 2.4 thou/uL (0.8-5.3); ABSOLUTE MONOCYTES 0.8 thou/uL (0.0-1.2); ABSOLUTE NEUTROPHILS 5.4 thou/uL (1.6-8.1); BASOPHILS 1.5 %; EOSINOPHILS 7.1 %; HEMATOCRIT 40.8 % (37.0-47.0); HEMOGLOBIN 13.8 gm/dL (12.0-15.0); LYMPHOCYTES 25.7 %; MCH 30.8 pg (26.0-34.0); MCHC 33.8 g/dL (28.0-37.0); MCV 91.2 fL (80.0-100.0); MONOCYTES 8.2 %; MPV 8.9 fl. (7.2-11.1); NUCLEATED RBCS 0 /100WBC; PLATELET COUNT* 323 thou/uL (150-400); POLYS 57.5 %; RBC 4.48 mil/uL (4.20-5.00); WBC 9.4 thou/uL (4.0-11.0)
[2019-09-02 00:35] LABS: CALCIUM 8.8 mg/dL (8.5-10.1); CREATININE 0.9 mg/dL (0.6-1.3); POTASSIUM 3.8 mmol/L (3.5-5.1)
[2019-09-02 00:39] LABS: PROTIME 10.5 Seconds (9.20-11.50)
[2019-09-02 00:44] LABS: ALBUMIN 3.7 g/dL (3.4-5.0); MAGNESIUM 2.1 mg/dL (1.8-2.4); TOTAL BILIRUBIN 0.2 mg/dL (<0.1-1.0); TOTAL PROTEIN 7.4 g/dL (6.4-8.2)
--- NOTE | 2019-09-02 06:28 | NUR ---
PATIENT ARRIVED ON FLOOR FROM ER AT ABOUT 0245. PATIENT ADMISSION HISTORY AND ASSESSMENT WAS COMPLETED CHARTED. PATIENT IS ON OXYGEN AT 3L PER NC. PATIENT HAS CHRONIC BACK PAIN. DOCTOR WAS CALLED AND HOME PAIN MEDICATION WAS ORDERED AND GIVEN. WILL CONTINUE TO MONITOR.
--- NOTE | 2019-09-02 09:10 | NUR ---
ASSUMED CARE OF PT THIS AM AROUND 0715- CRATE BUILDER IN PLACE ORDERED, TRACING SR/ST- UPON ASSESSMENT PT NOTED TO BE RESTING IN BED, WATCHING TV- PT A&O X4- CONT OF BOWEL/BLADDER- UP AD-WAQAR IN ROOM, STEADY GAIT NOTED- VSS, O2 SAT 92% ON 3L VIA NC- ABD SOFT/ROUND/NON-TEDNER, BS X4 QUADS- LAST BM REPORTED 09/01/19- IV NOTED TO LEFT AC INTACT AND SL- GOOD PO INTAKE NOTED THIS AM WITH BREAKFAST- PT RATES PAIN 10/23 TO BACK/CHRONIC- PRN PAIN MEDICATIONS PER PT REQUEST- CALL LIGHT AND PERSONAL BELONGINGS WITH IN REACH- PT MAKES NEEDS KNOWN- ALL NEEDS MET AT THIS TIME-WCTM
[2019-09-03] VITALS: BP 102/53
[2019-09-03 04:00] VITALS: BP 126/67
--- NOTE | 2019-09-03 06:02 | NUR ---
PATIENT SLEPT MOST OF THE NIGHT. IV REMAINS SALINE LOCKED. PATIENT REMAINS ON OXYGEN AT 3L PER NC. PAIN MEDICINE WAS GIVEN ONCE. WILL CONTINUE TO MONITOR.
--- NOTE | 2019-09-03 07:15 | NUR ---
CHANGE OF SHIFT, BEDSIDE REPORT GIVEN PATIENT SEEN AT BEDSIDE, IN BED RESTING ASSUMED PATIENT CARE
[2019-09-03 08:00] VITALS: BP 155/71
[2019-09-03 12:00] VITALS: BP 137/61
--- NOTE | 2019-09-03 13:10 | EKG ---
[place] [address] ELECTROCARDIOGRAM REPORT Name: MAEVE NESBITT Room: [address] ADM IN M.R.#: [id number] Admission: 09/02/19 Attend Phys: Mihir Padron Discharge: Date of : 47 Date of Service: 09/02/19 0001 Report #: [id number] THIS REPORT FOR: //name// [facility] ED Test Date: 2019-09-02 Test Time: 00:01:55 Pat Name: MAEVE NESBITT Department: Room: [address] Gender: F Novelty Maker: [place] : 1945 Requested By: Cherry Lozoya Order Number: [id number] MD: Florian Tan Measurements Intervals [place] Rate: 109 P: 83 DC: 164 QRS: -62 QRSD: 82 T: 64 QT: 350 QTc: 472 Interpretive Statements Sinus tachycardia Consider right atrial enlargement Low voltage, extremity leads RSR' in V1 or V2, probably normal variant Abnormal inferior Q waves Compared to ECG 09/13/2018 10:49:16 Sinus rhythm no longer present Electronically Signed On 09-03-2019 13:09:16 CDT by Florian Tan [email or web address] <ELECTRONICALLY SIGNED> By: Florian Tan MD, FACC 09/03/19 1309 0001 0001 Florian Tan MD, FAC /EPI
--- NOTE | 2019-09-03 14:00 | NUR ---
SW called pt room and spoke with pt to complete initial assessment. Pt continues to live at home with family support. Pt has prn oxygen through [facility]. No other DME or known history of HH or SNF. Pt does not anticipate any dc needs at this time. SW to remain available to assist with safe dc planning if needs arise.
[2019-09-03 15:32] VITALS: BP 129/60
[2019-09-03 20:00] VITALS: BP 134/64
--- NOTE | 2019-09-03 20:00 | NUR ---
RECEIVED REPORT AND ASSUMED CARE OF PT, ASSESSMENT COMPLETED. PT AMBULATING ABOUT ROOM, STEADY BUT DOES BECOME SOA. O2 ON AT 2L/NC. TELEMETRY ON SHOWING SR. WILL CONT TO MONITOR AND ASSIST NEEDED.
[2019-09-04] VITALS (7 sets, daily range): BP systolic 107–144; BP diastolic 60–78
[2019-09-04 06:28] LABS: ABSOLUTE LYMPHOCYTES 2.3 thou/uL (0.8-5.3); ABSOLUTE MONOCYTES 0.9 thou/uL (0.0-1.2); ABSOLUTE NEUTROPHILS 15.5 thou/uL (1.6-8.1); BASOPHILS 0.2 %; HEMATOCRIT 37.7 % (37.0-47.0); HEMOGLOBIN 12.4 gm/dL (12.0-15.0); MCH 30.1 pg (26.0-34.0); MCHC 32.8 g/dL (28.0-37.0); MCV 91.8 fL (80.0-100.0); MPV 8.5 fl. (7.2-11.1); NUCLEATED RBCS 0 /100WBC; PLATELET COUNT* 294 thou/uL (150-400); POLYS 82.8 %; RBC 4.11 mil/uL (4.20-5.00); RDW-CV 14.3 % (10.5-14.5); WBC 18.8 thou/uL (4.0-11.0)
[2019-09-04 06:37] LABS: CALCIUM 8.9 mg/dL (8.5-10.1); CREATININE 0.8 mg/dL (0.6-1.3); MAGNESIUM 2.1 mg/dL (1.8-2.4); POTASSIUM 4.1 mmol/L (3.5-5.1)
--- NOTE | 2019-09-04 06:40 | NUR ---
SLEPT WELL. ASSESSMENT UNCHANGED. SOA WITH ACTIVITY. GAIT STEADY. TELEMETRY CONT TO SHOW SR. HS GOALS OF REST AND SAFETY ACHIEVED. HOURLY ROUNDING OBSERVED.
--- NOTE | 2019-09-04 10:40 | NUR ---
INITAL ASSESSMENT COMPLETED CHARTED. VSS. TRACING SR ON MONITOR. PT DOES C/O CHRONIC BACK PAIN. PRN HYDROCODONE GIVEN WITH PARTIAL RESULTS. NO NEW CONCERNS AT THIS TIME. HOURLY ROUNDING IN PLACE FOR PT SAFETY. CLWR.
--- NOTE | 2019-09-04 11:09 | NUR ---
Per , anticipate dc tomorrow.
[2019-09-05 04:00] VITALS: BP 120/74
--- NOTE | 2019-09-05 06:50 | NUR ---
ASSUMED PT CARE AT 1910. NURSING ASSESSMENT COMPLETED AT START OF SHIFT. SR ON GRINDER MACHINE SETTER. PT VOICED NO CONCERNS THIS SHIFT. HOURLY ROUNDING COMPLETED. CALL LIGHT WITHIN REACH.
[2019-09-05 08:00] VITALS: BP 142/86
--- NOTE | 2019-09-05 16:55 | NUR ---
PT IS A/O X4,VSS,DOWNGRADED TO MED-SURG STATUS.PT REMAINS ON 2L O2 NC PRN.PAIN MANAGED WELL WITH PO MEDICATIONS.PT C/O NAUSEA-MEDICATIONS GIVEN.HOURLY ROUNDING COMPLETED FOR PT SAFETY.CALL LIGHT WITHIN REACH.WILL CONTINUE TO MONITOR FOR DURATION OF SHIFT.
[2019-09-05 20:00] VITALS: BP 108/67
[2019-09-06] VITALS: BP 129/71
--- NOTE | 2019-09-06 03:27 | NUR ---
ASSUMED CARE FROM DAY SHIFT PT RESTING WELL ON ROOM AIR SAT 94 % COLOR PINK DENIES SOA CARDIAC TAKEN OFF ORDERED. VSS RESTING WELL THROUGHOUT HOURLY ROUNDS DUSICUSS PLAN OF CARE AND AGREEABLE.WILL REPORT CHANGES OR ABNORMANL FINDINGS.
[2019-09-06 07:00] VITALS: BP 140/77
--- NOTE | 2019-09-06 08:50 | NUR ---
INITAL ASSESSMENT COMPLETED CHARTED. VSS. PT IS M/S STATUS. RA. NO NEW CONCERNS AT THIS TIME. REFER TO COMPUTER CHARTING FOR FURTHER DETAILS. HOURLY ROUNDING IN PLACE FOR PT SAFETY. CLWR.
[2019-09-06] MEDS ORDERED: PREDNISONE 10 M10 MG PO (10:05)
[2019-09-06] MEDS ORDERED: PULMICORT0.5 MG/2 M INH (10:05)
[2019-09-06] MEDS ORDERED: MUCINEX600 MG PO (10:05)
[2019-09-06 10:57] VITALS: BP 140/77
--- NOTE | 2019-09-06 11:38 | NUR ---
Pt to dc home with family support today. Pt refusing HH services at dc. Dr Zambrano is aware and SW spoke with pt nurse about dc as well.
== END 2019-09-06 13:50 | disposition home or self-care (01) | DRG 189 ==
LOC: M.ERS 23:56 → M.TBA-ER 09-02 01:47 → M.2W 09-02 01:47
PROVIDERS: Internal Medicine; Personal Emergency Response Attendant; ADMIT Internal Medicine
DX: J96.21 Acute and chronic respiratory failure with hypoxia (principal); J44.1 Chronic obstructive pulmonary disease with (acute) exacerbation; J45.901 Unspecified asthma with (acute) exacerbation; J44.0 Chronic obstructive pulmonary disease with (acute) lower respiratory infection; J20.9 Acute bronchitis, unspecified; E78.00 Pure hypercholesterolemia, unspecified; G89.29 Other chronic pain; M54.9 Dorsalgia, unspecified; E78.5 Hyperlipidemia, unspecified; Z90.711 Acquired absence of uterus with remaining cervical stump; Z90.49 Acquired absence of other specified parts of digestive tract; Z88.0 Allergy status to penicillin; Z85.118 Personal history of other malignant neoplasm of bronchus and lung; Z86.711 Personal history of pulmonary embolism; Z82.49 Family history of ischemic heart disease and other diseases of the circulatory system; Z83.6 Family history of other diseases of the respiratory system; Z87.891 Personal history of nicotine dependence

== ENCOUNTER 2020-04-21 17:55 | Emergency (ER) | payer MEDICARE, MEDICAID ==
[~2020-04-21] VITALS: Ht 152.4 cm; Wt 64.4 kg
[~2020-04-21 17:55] MED LIST changes: +PULMICORT0.5 MG/2 M INH
[2020-04-21 18:30] LABS: ABSOLUTE BASOPHILS 0.2 thou/uL (0.0-0.2); ABSOLUTE EOSINOPHILS 0.2 thou/uL (0.0-0.7); ABSOLUTE LYMPHOCYTES 1.9 thou/uL (0.8-5.3); ABSOLUTE MONOCYTES 0.6 thou/uL (0.0-1.2); ABSOLUTE NEUTROPHILS 6.2 thou/uL (1.6-8.1); BASOPHILS 1.8 %; EOSINOPHILS 2.5 %; HEMATOCRIT 42.4 % (37.0-47.0); HEMOGLOBIN 14.2 gm/dL (12.0-15.0); LYMPHOCYTES 20.7 %; MCH 30.6 pg (26.0-34.0); MCHC 33.4 g/dL (28.0-37.0); MCV 91.6 fL (80.0-100.0); MONOCYTES 6.5 %; MPV 8.3 fl. (7.2-11.1); NUCLEATED RBCS 0 /100WBC; PLATELET COUNT* 314 thou/uL (150-400); POLYS 68.5 %; RBC 4.63 mil/uL (4.20-5.00); RDW-CV 13.9 % (10.5-14.5)
[2020-04-21 18:34] LABS: CALCIUM 9.1 mg/dL (8.5-10.1); CREATININE 0.7 mg/dL (0.6-1.3)
[2020-04-21 18:35] LABS: APTT 24.6 Seconds (25.0-31.3); PROTIME 10.5 Seconds (9.20-11.50)
[2020-04-21 18:45] LABS: ALBUMIN 3.5 g/dL (3.4-5.0); TOTAL BILIRUBIN 0.3 mg/dL (<0.1-1.0)
[2020-04-21 19:05] LABS: URINE BILIRUBIN NEGATIVE (Negative); URINE BLOOD NEGATIVE (Negative); URINE COLOR YELLOW; URINE GLUCOSE-RANDOM NEGATIVE (Negative); URINE KETONES NEGATIVE (Negative); URINE LEUKOCYTES-REFLEX 1+ (Negative); URINE NITRITE-REFLEX NEGATIVE (Negative); URINE PROTEIN NEGATIVE (Negative); URINE SPECIFIC GRAVITY 1.025 (1.005-1.030); URINE UROBILINOGEN 0.2 E.U./dl (0.2-1.0)
[2020-04-21 19:06] LABS: URINE CLARITY HAZY
[2020-04-21 19:13] LABS: BACTERIA-REFLEX None Seen /HPF (None Seen); CASTS None Seen /LPF (None Seen); SQUAMOUS >10 Many /LPF (0-3); URINE RBC None Seen /HPF (0-2); URINE WBC-REFLEX 0-5 Rare /HPF (0-5)
[2020-04-21 19:14] LABS: CRYSTALS None Seen /LPF (None Seen)
[2020-04-21] MEDS ORDERED: TRANSDERM-SCOP1 EACH TRANSDERM (19:48)
[2020-04-21] MEDS ORDERED: MECLIZINE HCL25 MG PO (19:59)
[2020-04-21 20:11] VITALS: BP 158/100
--- NOTE | 2020-04-22 11:00 | EKG ---
[place] [address] ELECTROCARDIOGRAM REPORT Name: MAEVE NESBITT Room: [facility]#: [id number] Admission: 04/21/20 Attend Phys: Discharge: 04/21/20 Date of : 47 Date of Service: 04/21/20 180 Report #: [id number] THIS REPORT FOR: //name// [facility] ED Test Date: 2020-04-21 Test Time: 18:04:51 Pat Name: MAEVE NESBITT Department: Room: Gender: Net Developer Programmer: [facility] : 1945 Requested By: Aniceto Zapata Order Number: [id number] MD: Florian Tan Measurements Intervals [place] Rate: 96 P: 73 MD: 148 QRS: -60 QRSD: 86 T: 66 QT: 359 QTc: 454 Interpretive Statements Sinus rhythm Probable inferior infarct, old Consider anterior infarct Compared to ECG 09/02/2019 00:01:55 Sinus tachycardia no longer present Electronically Signed On 04-22-2020 11:00:29 FAMILY PRESERVATION WORKER by Florian Tan [email or web address] <ELECTRONICALLY SIGNED> By: Florian Tan MD, [facility] 04/22/20 1100 1804 1804 Florian Tan MD, [facility] /EPI
== END 2020-04-21 20:11 | disposition home or self-care (01) ==
LOC: M.ERS 17:55
PROVIDERS: Family Medicine
DX: H81.10 Benign paroxysmal vertigo, unspecified ear (principal); J44.9 Chronic obstructive pulmonary disease, unspecified; G89.29 Other chronic pain; E78.00 Pure hypercholesterolemia, unspecified; F17.210 Nicotine dependence, cigarettes, uncomplicated; Z90.711 Acquired absence of uterus with remaining cervical stump; Z90.49 Acquired absence of other specified parts of digestive tract; Z88.0 Allergy status to penicillin

== ENCOUNTER 2020-05-14 03:42 | Observation (INO) | payer OTHER, MEDICAID ==
[~2020-05-14] VITALS: Ht 152.4 cm; Wt 63.5 kg
[~2020-05-14 03:42] MED LIST changes: +MECLIZINE HCL25 MG PO; +TRANSDERM-SCOP1 EACH TRANSDERM
[2020-05-14 03:49] VITALS: BP 156/98
[2020-05-14 04:09] LABS: ABSOLUTE BASOPHILS 0.1 thou/uL (0.0-0.2); ABSOLUTE EOSINOPHILS 0.3 thou/uL (0.0-0.7); ABSOLUTE MONOCYTES 0.9 thou/uL (0.0-1.2); ABSOLUTE NEUTROPHILS 8.8 thou/uL (1.6-8.1); BASOPHILS 0.8 %; EOSINOPHILS 2.2 %; HEMATOCRIT 41.4 % (37.0-47.0); HEMOGLOBIN 13.9 gm/dL (12.0-15.0); LYMPHOCYTES 16.8 %; MCH 30.6 pg (26.0-34.0); MCHC 33.5 g/dL (28.0-37.0); MCV 91.4 fL (80.0-100.0); MONOCYTES 7.6 %; MPV 8.2 fl. (7.2-11.1); NUCLEATED RBCS 0 /100WBC; PLATELET COUNT* 276 thou/uL (150-400); POLYS 72.6 %; RBC 4.53 mil/uL (4.20-5.00); WBC 12.1 thou/uL (4.0-11.0)
[2020-05-14 04:14] LABS: CALCIUM 9.2 mg/dL (8.5-10.1); CREATININE 0.7 mg/dL (0.6-1.3)
[2020-05-14 04:25] LABS: ALBUMIN 3.4 g/dL (3.4-5.0); TOTAL BILIRUBIN 0.4 mg/dL (<0.1-1.0); TOTAL PROTEIN 7.3 g/dL (6.4-8.2)
[2020-05-14 04:27] LABS: PROTIME 10.2 Seconds (9.20-11.50)
--- NOTE | 2020-05-14 08:31 | NUR ---
PT AMBULATED TO RESTROOM. PT WITH INCREASED WOB AND CHEST PAIN AFTER AMBULATING. PT UPDATED ON POC AND CURRENT WAIT. PT PLACED BACK ON MONITOR WILL CONT TO MONITOR.
--- NOTE | 2020-05-14 09:47 | NUR ---
PT TO STRESS TEST WITH TECH.
--- NOTE | 2020-05-14 09:57 | EKG ---
[place] [address] ELECTROCARDIOGRAM REPORT Name: MAEVE NESBITT Room: [address] M.R.#: [id number] Admission: 05/14/20 Attend Phys: Ember Tubbs Discharge: Date of : 47 Date of Service: 05/14/20 0346 Report #: [id number] THIS REPORT FOR: //name// [facility] ED Test Date: 2020-05-14 Test Time: 03:46:29 Pat Name: MAEVE NESBITT Department: Room: [facility] Gender: F Case Packer And Sealer: : 1945 Requested By: Cherry Lozoya Order Number: [id number] MD: Wallace Man Measurements Intervals [place] Rate: 102 P: 87 UT: 146 QRS: -63 QRSD: 90 T: 64 QT: 338 QTc: 441 Interpretive Statements Sinus tachycardia Probable left atrial enlargement Abnormal R-wave progression, late transition Possible inferior infarct, old Compared to ECG 04/21/2020 18:04:51 Sinus rate has increased Myocardial infarct finding still present Electronically Signed On 05-14-2020 9:56:50 EDITORIAL CLERK by Wallace Man [email or web address] <ELECTRONICALLY SIGNED> By: Wallace Man MD, FACC 05/14/20 0956 5 5 Wallace Man MD, FACC /EPI
--- NOTE | 2020-05-14 09:59 | EKG ---
[place] [address] ELECTROCARDIOGRAM REPORT Name: MAEVE NESBITT Room: [address] M.R.#: [id number] Admission: 05/14/20 Attend Phys: Ember Tubbs Discharge: Date of : 47 Date of Service: 05/14/20 0625 Report #: [id number] THIS REPORT FOR: //name// [facility] ED Test Date: 2020-05-14 Test Time: 06:25:20 Pat Name: MAEVE NESBITT Department: Room: [facility] Gender: F Hired Hand: : 1945 Requested By: Cherry Lozoya Order Number: [id number] MD: Wallace Man Measurements Intervals [place] Rate: 76 P: 94 MD: 159 QRS: -28 QRSD: 95 T: 62 QT: 396 QTc: 446 Interpretive Statements Sinus rhythm Borderline left axis deviation Low voltage, extremity leads Abnormal inferior Q waves Compared to ECG 05/14/2020 03:46:29 Low QRS voltage now present Inferior Q waves now present Sinus tachycardia no longer present Myocardial infarct finding still possible Electronically Signed On 05-14-2020 9:59:39 OIL AND GAS SPECIALIST by Wallace Man [email or web address] <ELECTRONICALLY SIGNED> By: Wallace Man MD, [facility] 05/14/20 0959 4 4 Wallace Man MD, [facility] /EPI
[2020-05-14 12:00] VITALS: BP 118/46
--- NOTE | 2020-05-14 12:26 | CARDNUC ---
[place] [address] CARDIAC NUCLEAR IMAGING REPORT Name: MAEVE NESBITT FAWAD Room: [address] M.R.#: [id number] Admission: 05/14/20 Attend Phys: Ember Tubbs Discharge: Date of : 47 Date of Service: 05/14/20 1226 Report #: [id number] THIS REPORT FOR: cc: Allen Diaz MD, Jason MD Liston, Michael J. MD [facility] ~ APPROVED REPORT Imaging Protocol: Rest Tc-99m/Stress Tc-99m 1 day Study performed: 05/14/2020 11:05:47 Indication: Chest pain. Patient Location: In-Patient Room #: E.D. Stress Tech: Jaida Copeland Stress Nurse: Norma Pringle RN NM Tech:PAUL Watts Ht: 5 ft 0 in Wt: 140 lbs BSA: 1.60 m2 BMI: 27.33 Medical History Medical History: CHEST PAIN, COPD, DIZZINESS POSSIBLY R/T EAR, SINUS TACHYCARDIA, EMPHYSEMA, HX LUNG CANCER, LLL LOBECTOMY 2018, HTN, HLD, PAST SMOKER, BACK PROBLEMS/PAIN, O2 2L NC. Medications: NTG, ASA 81 MG, ATORVASTATIN. Allergies: PNC Cardiac Risk Factors: Age, FHX of CAD, HTN, Hyperlipidemia, Past Smoker. Previous Cardiac Procedures: NONE Pretest Chest Pain Characteristics: No chest pain Exercise History: Indeterminate Physical Disabilities: O2 2L NC, WEAK, IV FLUIDS INFUSING. Meds Held (24 hrs): NONE Resting Data Rest SPECT myocardial perfusion imaging was performed in supine position 30 minutes following the intravenous injection of 9.9 mCi of Tc-99m Sestamibi. Time of rest injection: 09 Date: 05/14/2020 The images were gated to evaluate regional wall motion and calculate left ventricular ejection fraction. Administration Route: IV Administration Site: [place] [address] CARDIAC NUCLEAR IMAGING REPORT Name: LAZMAEVE FAWAD Room: [address] MJorgeRJorge#: [id number] Admission: 05/14/20 Attend Phys: Ember Tubbs Discharge: Date of : 47 Date of Service: 05/14/20 1226 Report #: [id number] Pharmacologic Stress Pharmacologic stress test was performed by injecting Regadenoson 0.4 mg IV push over 10-15 seconds immediately followed by the intravenous injection of 29.7 mCi of Tc-99m Sestamibi. Time of stress injection: 1115 Date: 05/14/2020 Administration Route: IV Administration Site: Left Hand Gated Stress SPECT was performed 40 minutes after stress injection. The images were gated to evaluate regional wall motion and calculate left ventricular ejection fraction. Stress only was performed in the Supine position. Stress Test Details Stress Test: Pharmacologic stress testing performed using 0.4 mg of regadenoson per 5 mL given IV over 10 seconds. Reason for pharmacologic stress test: O2 2L NC, WEAK, IV FLUIDS INFUSING.. HR Max Heart Rate (APMHR): 147 bpm Resting HR: 79 bpm Target HR (85% APMHR): 124 bpm Max HR Achieved: 117 bpm % of APMHR: 79 Recovery HR: 104 bpm BP Resting BP: 125/56 mmHg Max BP: 149/62 mmHg Recovery BP: 162/72 mmHg ECG Resting ECG: Sinus Rhythm Stress ECG: Sinus Tachycardia ST Change: None Arrhythmia: None Recovery ECG: Sinus Rhythm Recovery ST Change: None Recovery Arrhythmia: None Clinical Reason for Termination: Completed protocol Stress Symptoms: INCREASED DYSPNEA. Exercise duration: 00 min 00 sec Exercise capacity: 1.00 METs The patient tolerated Lexiscan infusion [place] [address] CARDIAC NUCLEAR IMAGING REPORT Name: MAEVE NESBITT FAWAD Room: [address] M.R.#: [id number] Admission: 05/14/20 Attend Phys: Ember Tubbs Discharge: Date of : 47 Date of Service: 05/14/20 1226 Report #: [id number] Nurse Comments A 74 FEMALE E.R. PATIENT PRESENTED ON 2L O2 NC AND IV FLUIDS FOR A SITTING LEXISCAN R/T CHEST PAIN. TEST WELL TOLERATED. RECOVERY UNREMARKABLE. PATIENT WAS STABLE AND STATED SHE FELT GOOD WHEN ESCORTED TO NUCLEAR MEDICINE FOR IMAGING. Stress ECG Conclusion The baseline twelve-lead EKG shows sinus rhythm without significant ST segment or T wave abnormality. EKGs obtained during and post Lexiscan infusion show sinus rhythm and sinus tachycardia with no significant ST segment changes when compared to baseline. There were no stress-induced arrhythmias. Study Quality Study: Good Artifact: No artifact Study Data At rest, the left ventricular ejection fraction was 71%.. Post stress, the left ventricular ejection was 82%.. TID = 0.99. Perfusion Perfusion images obtained at rest and post stress show uniform uptake of the radioisotope throughout the myocardium. There were no defects to suggest infarct or ischemia. Wall Motion Normal left ventricular wall motion. Nuclear Conclusion ECG Findings: negative for ischemia Clinical Findings: negative for ischemia Nuclear Findings: negative for ischemia Exercise Capacity: not assessed Left Ventricular Function: normal Risk Study: low Myocardial perfusion images show no defect to suggest infarct or ischemia. Left ventricular systolic function appears normal on gated studies. This is a low risk study. <Conclusion> The baseline twelve-lead EKG shows sinus rhythm without significant ST segment or T wave abnormality. EKGs obtained during and post Lexiscan infusion show sinus rhythm and sinus [place] [address] CARDIAC NUCLEAR IMAGING REPORT Name: MAEVE NESBITT Room: [address] [place]#: [id number] Admission: 05/14/20 Attend Phys: Ember Tubbs Discharge: Date of : 47 Date of Service: 05/14/20 1226 Report #: [id number] segment changes when compared to baseline. There were no stress-induced arrhythmias. <ELECTRONICALLY SIGNED> By: Geovanni Live MD, FACC 05/14/20 122 25 25 Geovanni Live MD, FACC /INF
[2020-05-14 13:15] VITALS: BP 118/46
[2020-05-14 13:35] VITALS: BP 118/58
== END 2020-05-14 14:06 | disposition home or self-care (01) ==
LOC: M.ERS 03:42 → M.TBA-ER 06:30
PROVIDERS: Personal Emergency Response Attendant; ADMIT Internal Medicine; ATTEND Internal Medicine
DX: R07.89 Other chest pain (principal); J44.1 Chronic obstructive pulmonary disease with (acute) exacerbation; E78.00 Pure hypercholesterolemia, unspecified; G89.29 Other chronic pain; Z87.891 Personal history of nicotine dependence; Z20.828 Contact with and (suspected) exposure to other viral communicable diseases; Z79.899 Other long term (current) drug therapy

== ENCOUNTER 2021-04-20 22:58 | Inpatient (IN) | payer OTHER, MEDICAID ==
[~2021-04-20] VITALS: Ht 152.4 cm; Wt 68.0 kg
[2021-04-20 22:59] VITALS: BP 147/81
[2021-04-20 23:36] LABS: NUCLEATED RBCS 0 /100WBC
[2021-04-20 23:38] LABS: HEMATOCRIT 38.7 % (37.0-47.0); HEMOGLOBIN 12.5 gm/dL (12.0-15.0); MCH 29.8 pg (26.0-34.0); MCHC 32.4 g/dL (28.0-37.0); PLATELET COUNT* 329 thou/uL (150-400); RDW-CV 14.1 % (10.5-14.5); WBC 21.4 thou/uL (4.0-11.0)
[2021-04-20 23:42] LABS: CREATININE 0.7 mg/dL (0.6-1.3); POTASSIUM 3.6 mmol/L (3.5-5.1)
[2021-04-20 23:52] LABS: ALBUMIN 2.8 g/dL (3.4-5.0); TOTAL BILIRUBIN 0.9 mg/dL (<0.1-1.0); TOTAL PROTEIN 7.5 g/dL (6.4-8.2)
[2021-04-21 00:06] LABS: INFLUENZA A ANTIGEN Negative (Negative); INFLUENZA B ANTIGEN Negative (Negative)
[2021-04-21 00:40] LABS: URINE BLOOD 1+ (Negative); URINE CLARITY CLEAR; URINE COLOR DARK YELLOW; URINE GLUCOSE-RANDOM NEGATIVE (Negative); URINE KETONES 2+ (Negative); URINE LEUKOCYTES-REFLEX TRACE (Negative); URINE NITRITE-REFLEX NEGATIVE (Negative); URINE PROTEIN 2+ (Negative); URINE SPECIFIC GRAVITY 1.025 (1.005-1.030)
[2021-04-21 00:45] LABS: ABSOLUTE LYMPHOCYTES 0.6 thou/uL (0.8-5.3); ABSOLUTE MONOCYTES 1.5 thou/uL (0.0-1.2); ABSOLUTE NEUTROPHILS 19.3 thou/uL (1.6-8.1)
[2021-04-21 00:46] LABS: LARGE PLATELETS OCCASIONAL; PLATELET ESTIMATE ADEQUATE
[2021-04-21 01:33] LABS: URINE BILIRUBIN 2+ (Negative)
[2021-04-21 01:34] LABS: ICTOTEST (BILI CONFIRMATORY) Negative (Negative)
[2021-04-21 01:49] LABS: HYALINE CASTS 4-10 Moderate /LPF (None Seen); MUCUS 0-3 Light strn/LPF (None Seen); SQUAMOUS 4-10 Moderate /LPF (0-3)
[2021-04-21 01:50] LABS: CRYSTALS None Seen /LPF (None Seen); URINE RBC 3-10 Few /HPF (0-2); URINE WBC-REFLEX 0-5 Rare /HPF (0-5)
[2021-04-21 05:57] VITALS: BP 140/70
--- NOTE | 2021-04-21 07:54 | NUR ---
BREAKFAST PROVIDED TO PATIENT
--- NOTE | 2021-04-21 08:30 | NUR ---
PATIENT FINISHED WITH BREAKFAST, AND REQUEST HER BREATHING TREATMENT
--- NOTE | 2021-04-21 09:39 | NUR ---
Pt came to the ER on 04/21/21 for COPD/Respiratory failure. Pt is alert and oriented. Pt lives with her 2 daughters, son, and grandaughter. Pt has a history of PRN oxygen with [facility]. Pt reports she was independent in ADL's and ambulation. Pt reports no hx of home health or SNF. Pt reports she saw her PCP 3 months ago. Pt reports she is not vaccinated. CM to follow pt for discharge needs.
--- NOTE | 2021-04-21 10:00 | NUR ---
PATIENT UPSET THAT SHE HAS NOT HAD HER BREATHING TREATMENT
[2021-04-21 10:54] VITALS: BP 140/70
--- NOTE | 2021-04-21 11:19 | NUR ---
PATIENT UPSET BREATHING TREATMENT IS NOT COMPLETE. INITIATED BREATHING TREATMENT MYSELF
--- NOTE | 2021-04-21 12:21 | EKG ---
[place] [address] ELECTROCARDIOGRAM REPORT Name: MAEVE NESBITT Room: [place] [address] ADM IN .R.#: [id number] Admission: 04/21/21 Attend Phys: Nieves Guzman, Discharge: Date of : 47 Date of Service: 04/20/21 2312 Report #: [id number] THIS REPORT FOR: //name// [facility] ED Test Date: 2021-04-20 Test Time: 23:12:02 Pat Name: MAEVE NESBITT Department: Room: [facility] Gender: F Communications Director: [place] : 1945 Requested By: Juliet eNves Order Number: [id number] MD: Florian Tan Measurements Intervals [place] Rate: 128 P: 75 [place]: 126 QRS: -55 QRSD: 84 T: 59 QT: 297 QTc: 434 Interpretive Statements Sinus tachycardia Abnormal R-wave progression, late transition Inferior infarct, old Lateral leads are also involved Compared to ECG 05/14/2020 06:25:20 Sinus rhythm no longer present Electronically Signed On 04-21-2021 12:21:47 EMERGENCY MEDICINE PHYSICIAN ASSISTANT by Florian Tan [email or web address] <ELECTRONICALLY SIGNED> By: Florian Tan MD, FACC 04/21/21 1221 231 11 Florian Tan MD, FAC /EPI
[2021-04-21 13:42] LABS: BE -1.9 mmol/L (-2 to +3); PO2 88.6 mmHg (75.0-100.0); pH 7.441 (7.340-7.450)
[2021-04-21 13:56] VITALS: BP 154/65
[2021-04-21 16:03] VITALS: BP 124/73
[2021-04-21 17:20] LABS: URINE BILIRUBIN NEGATIVE (Negative); URINE BLOOD 2+ (Negative); URINE CLARITY CLEAR; URINE COLOR YELLOW; URINE GLUCOSE-RANDOM 1+ (Negative); URINE KETONES TRACE (Negative); URINE LEUKOCYTES NEGATIVE (Negative); URINE NITRITE NEGATIVE (Negative); URINE PROTEIN 2+ (Negative); URINE SPECIFIC GRAVITY 1.025 (1.005-1.030)
[2021-04-21 17:38] LABS: MUCUS 0-3 Light strn/LPF (None Seen); SQUAMOUS 4-10 Moderate /LPF (0-3); URINE RBC 3-10 Few /HPF (0-2); URINE WBC 0-5 Rare /HPF (0-5)
[2021-04-21 17:39] LABS: BACTERIA 1-9 Few /HPF (None Seen)
[2021-04-21 20:00] VITALS: BP 111/57
[2021-04-21 20:04] VITALS: BP 124/73
[2021-04-22 01:01] VITALS: BP 103/59
[2021-04-22 05:24] VITALS: BP 106/55
--- NOTE | 2021-04-22 06:05 | NUR ---
RECEIVED PT FROM ED AT APPROX 1999. PT IS AWAKE AND ORIENTED X4. PT IS NOT IN DISTRESS, PT IS ON 2L OF O2/NC TO KEEP spO2 >92%. ADMISSION ASSESSMENT DONE AND CHARTED. PAIN MEDICINE GIVEN FOR CHRONIC BACK PAIN WITH PARTIAL RELIEF. NO ACUTE CHANGES NOTED. PT IS ABLE TO REST MOST OF THE NIGHT. CALL LIGHT WITHIN REACH. HOURLY ROUNDING DONE FOR PT SAFETY.
[2021-04-22 08:00] VITALS: BP 110/56
[2021-04-22 12:00] VITALS: BP 114/56
[2021-04-22 16:00] VITALS: BP 115/51
[2021-04-22 20:00] VITALS: BP 124/62
[2021-04-23 01:03] VITALS: BP 126/72
[2021-04-23 04:22] VITALS: BP 131/68
[2021-04-23 04:52] LABS: BE -2.2 mmol/L (-2 to +3); PO2 74.2 mmHg (75.0-100.0); pH 7.405 (7.340-7.450)
[2021-04-23 05:00] LABS: HEMATOCRIT 34.7 % (37.0-47.0); HEMOGLOBIN 11.2 gm/dL (12.0-15.0); MCH 29.7 pg (26.0-34.0); MCHC 32.4 g/dL (28.0-37.0); MCV 91.7 fL (80.0-100.0); MPV 8.7 fl. (7.2-11.1); NUCLEATED RBCS 0 /100WBC; PLATELET COUNT* 346 thou/uL (150-400); RBC 3.78 mil/uL (4.20-5.00); WBC 19.8 thou/uL (4.0-11.0)
--- NOTE | 2021-04-23 06:57 | NUR ---
Alert and oriented x 4. VS stable, SR on the monitor. She is on 2L n/c. She is up independently in the room. Pain med x 2 this shift. She has slept well.
[2021-04-23 07:26] LABS: ABSOLUTE EOSINOPHILS 0.2 thou/uL (0.0-0.7); ABSOLUTE LYMPHOCYTES 2.4 thou/uL (0.8-5.3); ABSOLUTE MONOCYTES 0.4 thou/uL (0.0-1.2); ABSOLUTE NEUTROPHILS 16.8 thou/uL (1.6-8.1); PLATELET ESTIMATE ADEQUATE
[2021-04-23 08:56] LABS: ALBUMIN 2.5 g/dL (3.4-5.0); CALCIUM 8.8 mg/dL (8.5-10.1); CREATININE 0.7 mg/dL (0.6-1.3); MAGNESIUM 2.3 mg/dL (1.8-2.4); POTASSIUM 4.3 mmol/L (3.5-5.1); TOTAL BILIRUBIN 0.1 mg/dL (<0.1-1.0); TOTAL PROTEIN 5.7 g/dL (6.4-8.2)
[2021-04-23 09:00] VITALS: BP 127/62
[2021-04-23 12:52] VITALS: BP 128/64
[2021-04-23 18:14] VITALS: BP 112/77
[2021-04-23 20:51] VITALS: BP 152/81
[2021-04-24 00:38] VITALS: BP 138/77
[2021-04-24 04:11] VITALS: BP 144/62
--- NOTE | 2021-04-24 04:21 | NUR ---
PATIENT HAS REMAINED ALERT AND ORIENTED X 4 THROUGHOUT THE SHIFT AND RESTING QUIETLY ON HOURLY ROUNDS. UP INDEPENDENTLY TO BR WITH O2. MEDICATED X 1 FOR BACK PAIN AT THIS TIME. VITAL SIGNS STABLE. CONTINUE TO MONITOR.
[2021-04-24 04:31] LABS: HEMATOCRIT 35.9 % (37.0-47.0); HEMOGLOBIN 11.6 gm/dL (12.0-15.0); MCH 29.6 pg (26.0-34.0); MCHC 32.3 g/dL (28.0-37.0); MCV 91.9 fL (80.0-100.0); MPV 8.6 fl. (7.2-11.1); RBC 3.91 mil/uL (4.20-5.00); RDW-CV 14.1 % (10.5-14.5); WBC 17.9 thou/uL (4.0-11.0)
[2021-04-24 04:50] LABS: ALBUMIN 2.2 g/dL (3.4-5.0); CALCIUM 8.5 mg/dL (8.5-10.1); CREATININE 0.7 mg/dL (0.6-1.3); MAGNESIUM 2.2 mg/dL (1.8-2.4); TOTAL BILIRUBIN 0.2 mg/dL (<0.1-1.0); TOTAL PROTEIN 5.9 g/dL (6.4-8.2)
[2021-04-24 04:53] LABS: POTASSIUM 3.3 mmol/L (3.5-5.1)
[2021-04-24 08:00] VITALS: BP 140/70
--- NOTE | 2021-04-24 10:12 | NUR ---
PLAN OF CARE: PLAN FOR THE PT TO D/C HOME WITH SELF-CARE PENDING PT BEING MEDICALLY STABLE. PT CURRENTLY ON 2L O2 AND DID NOT HAVE HOME O2 PRIOR TO ADMIT. PT WILL NEED REST AND EX OX TESTING PRIOR TO D/C TO DETERMINE NEED FOR HOME O2 AT D/C. CM WILL REMAIN AVAILABLE TO ASSIST AND FOLLOW NEEDED.
[2021-04-24] MEDS ORDERED: CEFDINIR300 MG PO (10:50)
[2021-04-24] MEDS ORDERED: COMBIVENT RESPIM4 GM INH (10:50)
[2021-04-24] MEDS ORDERED: VITAMIN D325 MC2 PO (10:50)
[2021-04-24 11:18] VITALS: BP 140/70
[2021-04-24] MEDS ORDERED: IPRAT-ALBUT 0.5-3 ML INH (11:52)
[2021-04-24 12:16] VITALS: BP 140/70
--- NOTE | 2021-04-24 12:54 | NUR ---
ASSUMED PT CARE AT 1930. ASSESSMENT COMPLETED CHARTED. ABLE TO MAKE NEEDS KNOWN. UP AD WAQAR IN ROOM. PAIN MEDICATION PER EMAR. DISCHARGE COMPLETED AND WENT OVER WITH PT, IV REMOVED. DAUGHTER ARRIVED AND PT ATE LUNCH, IS NOW BEING WHEELED DOWN TO DAUGHTERS CAR WITH ALL BELONGINGS.
== END 2021-04-24 13:00 | disposition home or self-care (01) | DRG 177 ==
LOC: M.ERS 22:58 → M.TBA-ER 04-21 02:21 → M.2W 04-21 20:35
PROVIDERS: Emergency Medicine; Internal Medicine; ADMIT Internal Medicine; ATTEND Internal Medicine
DX: J15.6 Pneumonia due to other Gram-negative bacteria (principal); R65.11 Systemic inflammatory response syndrome (SIRS) of non-infectious origin with acute organ dysfunction; J96.01 Acute respiratory failure with hypoxia; N39.0 Urinary tract infection, site not specified; E87.1 Hypo-osmolality and hyponatremia; J44.0 Chronic obstructive pulmonary disease with (acute) lower respiratory infection; E78.00 Pure hypercholesterolemia, unspecified; G89.29 Other chronic pain; Z20.822 Contact with and (suspected) exposure to COVID-19; D64.9 Anemia, unspecified; B96.89 Other specified bacterial agents as the cause of diseases classified elsewhere; Z90.711 Acquired absence of uterus with remaining cervical stump; Z90.49 Acquired absence of other specified parts of digestive tract; Z88.0 Allergy status to penicillin; Z87.891 Personal history of nicotine dependence

== ENCOUNTER 2021-06-24 20:35 | Emergency (ER) | payer OTHER, MEDICAID ==
[~2021-06-24] VITALS: Ht 152.4 cm; Wt 59.0 kg
[~2021-06-24 20:35] MED LIST changes: +CEFDINIR300 MG PO; +COMBIVENT RESPIM4 GM INH; +IPRAT-ALBUT 0.5-3 ML INH; +VITAMIN D325 MC2 PO
[2021-06-24 21:14] LABS: ABSOLUTE BASOPHILS 0.2 thou/uL (0.0-0.2); ABSOLUTE EOSINOPHILS 0.3 thou/uL (0.0-0.7); ABSOLUTE LYMPHOCYTES 2.2 thou/uL (0.8-5.3); ABSOLUTE MONOCYTES 0.7 thou/uL (0.0-1.2); ABSOLUTE NEUTROPHILS 5.8 thou/uL (1.6-8.1); BASOPHILS 2.6 %; EOSINOPHILS 2.8 %; HEMATOCRIT 40.9 % (37.0-47.0); HEMOGLOBIN 13.5 gm/dL (12.0-15.0); LYMPHOCYTES 23.8 %; MCH 29.5 pg (26.0-34.0); MCHC 33.1 g/dL (28.0-37.0); MONOCYTES 7.1 %; MPV 8.5 fl. (7.2-11.1); NUCLEATED RBCS 0 /100WBC; PLATELET COUNT* 318 thou/uL (150-400); POLYS 63.7 %; RBC 4.59 mil/uL (4.20-5.00); RDW-CV 15.4 % (10.5-14.5); WBC 9.2 thou/uL (4.0-11.0)
[2021-06-24 21:21] LABS: CREATININE 0.8 mg/dL (0.6-1.3); POTASSIUM 3.9 mmol/L (3.5-5.1)
[2021-06-24 21:31] LABS: ALBUMIN 3.6 g/dL (3.4-5.0); MAGNESIUM 2.1 mg/dL (1.8-2.4); TOTAL BILIRUBIN 0.4 mg/dL (<0.1-1.0); TOTAL PROTEIN 7.3 g/dL (6.4-8.2)
[2021-06-24 22:04] LABS: URINE BILIRUBIN NEGATIVE (Negative); URINE BLOOD NEGATIVE (Negative); URINE CLARITY CLEAR; URINE COLOR YELLOW; URINE GLUCOSE-RANDOM NEGATIVE (Negative); URINE KETONES NEGATIVE (Negative); URINE LEUKOCYTES-REFLEX 1+ (Negative); URINE NITRITE-REFLEX NEGATIVE (Negative); URINE PROTEIN NEGATIVE (Negative); URINE SPECIFIC GRAVITY 1.025 (1.005-1.030); URINE UROBILINOGEN 0.2 E.U./dl (0.2-1.0)
[2021-06-24 22:13] LABS: SQUAMOUS 4-10 Moderate /LPF (0-3); URINE WBC-REFLEX 6-15 Few /HPF (0-5)
[2021-06-24 22:14] LABS: BACTERIA-REFLEX 1-9 Few /HPF (None Seen); CASTS None Seen /LPF (None Seen); CRYSTALS None Seen /LPF (None Seen); MUCUS 4-6 Moderate strn/LPF (None Seen); URINE RBC 0-2 Rare /HPF (0-2)
[2021-06-25 02:30] VITALS: BP 119/70
--- NOTE | 2021-06-25 09:11 | EKG ---
[place] [address] ELECTROCARDIOGRAM REPORT Name: MAEVE NESBITT Room: [facility]#: [id number] Admission: 06/24/21 Attend Phys: Discharge: 06/25/21 Date of : 47 Date of Service: 06/24/212055 Report #: [id number] THIS REPORT FOR: //name// [facility] ED Test Date: 2021-06-24 Test Time: 20:56:58 Pat Name: MAEVE NESBITT Department: Room: Gender: Concrete Smoother: [place] : 1945 Requested By: Juliet Neves Order Number: [id number] MD: Wallace Man Measurements Intervals [place] Rate: 94 P: 86 PA: 145 QRS: -53 QRSD: 83 T: 68 QT: 358 QTc: 448 Interpretive Statements Sinus rhythm Abnormal R-wave progression, late transition Inferior infarct, old Compared to ECG 04/20/2021 23:12:02 Sinus tachycardia no longer present Myocardial infarct finding still present Electronically Signed On 06-25-2021 9:11:20 LAND[employer] by Wallace Man [email or web address] <ELECTRONICALLY SIGNED> By: Wallace Man MD, [facility] 06/25/21910 55 55 Wallace Man MD, [facility] /EPI
== END 2021-06-25 02:30 | disposition short-term general hospital (02) ==
LOC: M.ERS 20:35
PROVIDERS: Emergency Medicine
DX: G93.6 Cerebral edema (principal); Z20.822 Contact with and (suspected) exposure to COVID-19; E78.00 Pure hypercholesterolemia, unspecified; J44.9 Chronic obstructive pulmonary disease, unspecified; F17.210 Nicotine dependence, cigarettes, uncomplicated; Z90.710 Acquired absence of both cervix and uterus; Z90.49 Acquired absence of other specified parts of digestive tract; Z79.899 Other long term (current) drug therapy; Z88.0 Allergy status to penicillin